=== PATIENT | male | born 1980 | race Caucasian/White ===

== ENCOUNTER 2017-06-17 03:24 | Inpatient (IN) | payer MEDICARE, OTHER ==
[~2017-06-17] VITALS: Ht 172.7 cm; Wt 67.0 kg
[2017-06-17] MEDS ORDERED: SODIUM CHLORIDE 0.9% 1,000 ML IV ONE ×2 (06:45→20:45)
[2017-06-17] MEDS ORDERED: PERTUSS(ACELL),DIPH,TET VAC/PF 0.5 ML VIAL IM ONE (06:45)
[2017-06-17] MEDS ORDERED: IOVERSOL 320 MG/ML 100 ML VIAL ONE (07:05)
[2017-06-17] MEDS ORDERED: SODIUM CHLORIDE 0.9% 100 ML ONE (07:05)
[2017-06-17 07:57] LABS: BASOPHILS % (AUTO) 0.1 % (0.0-2.0); EOSINOPHILS % (AUTO) 0 % (1.0-6.0); LYMPHOCYTES # (AUTO) 0.7 K/uL (1.0-4.8); MEAN CORPUSCULAR HEMOGLOBIN 33.1 pg (26.0-34.0); MEAN CORPUSCULAR HGB CONC 34.8 G/dL (31.0-37.0); MEAN CORPUSCULAR VOLUME 95 fL (80-100); MONOCYTES % (AUTO) 5.5 % (2.0-9.0); NEUTROPHILS # (AUTO) 16.2 K/uL (1.8-7.7); PLATELET COUNT (AUTO) 244 K/uL (150-450); RED BLOOD CELL COUNT(AUTO) 5.14 MIL/uL (4.50-5.90); RED CELL DISTRIBUTION WIDTH 12.9 % (11.5-14.5); WHITE BLOOD COUNT (AUTO) 17.9 K/uL (4.5-11.0)
[2017-06-17 08:00] LABS: NEUTROPHILS % (AUTO) 90.4 % (40.0-70.0)
[2017-06-17] MEDS ORDERED: MORPHINE SULFATE 4 MG/ML SYRINGE IVP ONE ×2 (08:45)
[2017-06-17] MEDS ORDERED: ONDANSETRON HCL 4 MG/2 ML VIAL IVP ONE ×2 (08:45)
[2017-06-17 09:12] LABS: ANION GAP 15 mmol/L (8-16); CALCIUM, TOTAL 8.5 mg/dL (8.8-10.5); CARBON DIOXIDE 21 mmol/L (22-29); CHLORIDE 102 mmol/L (98-107); CREATININE 0.85 mg/dL (0.60-1.30); GLOMERULAR FILTR. RATE CALC > 60 mL/min (>60); POTASSIUM 3.8 mmol/L (3.5-5.1); SODIUM SERUM 138 mmol/L (136-145); UREA NITROGEN, BLOOD 15 mg/dL (7-18)
[2017-06-17 09:18] LABS: ALANINE AMINOTRANSFERASE 37 U/L (12-78); ALBUMIN 4.2 g/dL (3.4-5.0); ASPARTATE AMINOTRANSFERASE 35 U/L (15-37); BILIRUBIN,TOTAL 0.4 mg/dL (0.1-1.0); TOTAL PROTEIN, SERUM 7.4 g/dL (6.4-8.2)
[2017-06-17] MEDS ORDERED: LIDOCAINE HCL 1% 10 ML VIAL INJ ONE (13:00)
[2017-06-17] MEDS ORDERED: 0.9% SODIUM CHLORIDE 10 ML SYRINGE IVP PRN (13:30)
[2017-06-17] MEDS ORDERED: ONDANSETRON HCL 4 MG/2 ML VIAL IVP PRN (13:30)
[2017-06-17] MEDS ORDERED: ACETAMINOPHEN 325 MG TABLET PO PRN ×2 (13:30→20:45)
[2017-06-17] MEDS ORDERED: BACITRACIN 0.9 GM PACKET OINTMENT TP ONE (13:45)
[2017-06-17] MEDS: MORPHINE SULFATE 4 MG/ML SYRINGE IVP PRN ×2 (14:53→18:37)
[2017-06-17 15:34] VITALS: BP 157/110
[2017-06-17] MEDS ORDERED: INFLUENZA VIRUS VACCINE QVS 2017-18 (3YR+)/PF 60 MCG/0.5 ML SYRINGE IM ONE (18:45)
[2017-06-17 19:24] VITALS: BP 158/103
[2017-06-17] MEDS ORDERED: MAGNESIUM HYDROXIDE SUSPENSION 30 ML UDCUP PO PRN (20:45)
[2017-06-17] MEDS ORDERED: OxyCODONE HCL/ACETAMINOPHEN 5-325 MG TABLET PO PRN (20:45)
[2017-06-17 23:46] VITALS: BP 169/105
[2017-06-18] MEDS ORDERED: HEPARIN SODIUM,PORCINE 5,000 UNITS/ML VIAL SQ SCH
[2017-06-18] MEDS: DOCUSATE SODIUM 100 MG CAPSULE PO SCH ×3 (00:02→19:59)
[2017-06-18] MEDS: OxyCODONE HCL/ACETAMINOPHEN 5-325 MG TABLET PO PRN ×4 (00:02→19:59)
[2017-06-18 04:39] VITALS: BP 149/101
[2017-06-18 05:07] LABS: APPEARANCE,URINE CLEAR (CLEAR); GLUCOSE, URINE (UA) NEGATIVE (NEGATIVE); KETONES,URINE 15 mg/dL (NEGATIVE); LEUKOCYTE ESTERASE ,URINE NEGATIVE (NEGATIVE); OCCULT BLOOD,URINE SMALL (NEGATIVE); PROTEIN,URINE TRACE (NEGATIVE)
[2017-06-18 05:14] LABS: WBC,URINE 0-2 /HPF (0-5)
[2017-06-18 06:23] LABS: BASOPHILS # (AUTO) 0.02 K/uL (0.00-0.20); BASOPHILS % (AUTO) 0.2 % (0.0-2.0); EOSINOPHILS # (AUTO) 0.01 K/uL (0.00-0.70); EOSINOPHILS % (AUTO) 0.11 % (1.0-6.0); HEMATOCRIT 42.8 % (41-53); HEMOGLOBIN 14.4 g/dL (13.5-17.5); LYMPHOCYTES # (AUTO) 1.5 K/uL (1.0-4.8); LYMPHOCYTES % (AUTO) 16.3 % (22.0-44.0); MEAN CORPUSCULAR HEMOGLOBIN 32.5 pg (26.0-34.0); MEAN CORPUSCULAR HGB CONC 33.6 G/dL (31.0-37.0); MEAN CORPUSCULAR VOLUME 97 fL (80-100); MONOCYTES # (AUTO) 1.2 K/uL (0.1-1.0); MONOCYTES % (AUTO) 13.6 % (2.0-9.0); NEUTROPHILS # (AUTO) 6.4 K/uL (1.8-7.7); NEUTROPHILS % (AUTO) 69.8 % (40.0-70.0); PLATELET COUNT (AUTO) 183 K/uL (150-450); RED BLOOD CELL COUNT(AUTO) 4.43 MIL/uL (4.50-5.90); RED CELL DISTRIBUTION WIDTH 13.1 % (11.5-14.5); WHITE BLOOD COUNT (AUTO) 9.2 K/uL (4.5-11.0)
[2017-06-18] MEDS: PANTOPRAZOLE SODIUM 40 MG DR TABLET PO SCH (07:47)
[2017-06-18 08:06] VITALS: BP 162/112
[2017-06-18 19:43] VITALS: BP 154/107
[2017-06-19 00:15] VITALS: BP 152/96
[2017-06-19] MEDS: OxyCODONE HCL/ACETAMINOPHEN 5-325 MG TABLET PO PRN ×3 (02:31→14:29)
[2017-06-19 03:30] VITALS: BP 142/90
[2017-06-19 07:13] VITALS: BP 154/109
[2017-06-19] MEDS: DOCUSATE SODIUM 100 MG CAPSULE PO SCH (07:50)
[2017-06-19] MEDS: PANTOPRAZOLE SODIUM 40 MG DR TABLET PO SCH (07:50)
[2017-06-19 11:53] VITALS: BP 151/109
[2017-06-19] MEDS ORDERED: CloNIDine HCL 0.1 MG TABLET PO ONE (15:15)
[2017-06-19 15:36] VITALS: BP 150/96
[2017-06-19] MEDS ORDERED: PERCT10 PO (15:36)
[2017-06-19] MEDS ORDERED: NIFE30TA5 PO (15:36)
== END 2017-06-19 16:25 | disposition home or self-care (01) | DRG 535 ==
LOC: EMS 03:26 → 6N 13:35
PROVIDERS: ADMIT Internal Medicine; ATTEND Internal Medicine
PROC: 3E0234Z Introduction of Serum, Toxoid and Vaccine into Muscle, Percutaneous Approach (ICD-10-PCS; principal; 2017-06-19)
DX: S32.512A Fracture of superior rim of left pubis, initial encounter for closed fracture (principal); R65.11 Systemic inflammatory response syndrome (SIRS) of non-infectious origin with acute organ dysfunction; J43.9 Emphysema, unspecified; F12.90 Cannabis use, unspecified, uncomplicated; V89.2XXA Person injured in unspecified motor-vehicle accident, traffic, initial encounter; Z87.891 Personal history of nicotine dependence; Z91.040 Latex allergy status; Y93.89 Activity, other specified; Y92.89 Other specified places as the place of occurrence of the external cause; Y99.8 Other external cause status; Z23 Encounter for immunization
CPT/HCPCS: 70450; 71020; 71260; 72125; 72170; 72193; 74160; 80307; 90471; 90715; 96361; 96374; 96375; 97161; 97165; 97530; 99285; G0480; J2270; J2405; J3490; J7030; J7050